=== PATIENT | female | born 1955 | race Caucasian/White ===

== ENCOUNTER 2023-10-09 13:44 | Emergency (ER) | payer OTHER ==
--- OUTSIDE RECORDS SUMMARY | 2023-10-09 13:46 | XMS REPORT | Continuity of Care Document ---
:[address] [facility] t Address [address] [place] [address] [place] [id number] Care Team Providers Name Role Phone EUGENIO CHRISTIANSON Attending Clinician Unavailable LONNIE WILEY Attending Clinician Unavailable SHUKRI COTTRELL Attending Clinician Unavailable ALEXX FARFAN Attending Clinician Unavailable LIVIA ROTHMAN Attending Clinician Unavailable LAB90 Attending Clinician Unavailable SYSTEM, PROVIDER NOT IN Attending Clinician Unavailable Payers Payer Name Policy Type Policy Number Effective Date Expiration Date S ource HUMANA [place] GOLD 7 [id number] 2023 00:00:00 PLUS 42 OA HUMANA MA 5 [id number] 2022 00:00:00 Problems Condition Condition Condition Status Onset Resolution Last Treating Co mments Source Name Details Category Date Date Treatment Clinician Date Chronic Chronic Disease Active Celia obstructiv obstructiv 04-24 Se ybold e e 00:00: - pulmonary pulmonary 00 Exte rna disease, disease, l unspecifie unspecifie d COPD d COPD type type Allergies, Adverse Reactions, Alerts Allergy Allergy Status Severity Reaction(s) Onset Inactive Treating Comm ents Source Name Type Date Date Clinician Latex Drug Active Rash Celia Allergy 03-19 Seybold 00:00: - 00 Externa l Social History Social Habit Start Date Stop Date Quantity Comments Source Gender identity Celia baires - External Sexual orientation Celia Ann - External History of tobacco Cigarette Smoker Celia Ann use - External Alcohol intake 2023-04-24 2023-04-24 Lifetime Celia caban 00:00:00 00:00:00 non-drinker - External (finding) Tobacco use and 2023-03-19 2023-03-19 Smokeless tobacco Ke lsey Seybold exposure 00:00:00 00:00:00 non-user - External History of Social 2023-03-19 2023-03-19 Celia Ann function 00:00:00 00:00:00 - External Tobacco Comment 2023-03-19 2023-03-19 Stopped 12 years Jose bajwa Seybold 00:00:00 00:00:00 ago - External Sex [birth year] At [birth year] Celia baires 00:00:00 00:00:00 - External Smoking Status Start Date Stop Date Source Ex-smoker 2023-03-19 00:00:00 2023-03-19 00:00:00 Celia tellez - External Medications Ordered Filled Start Stop Current Ordering Indication Dosage Frequency Signature Comments Components Source Medication Medication Date Date Medication? Clinician (SIG) Name Name Gabapentin 2022- No 900mg Take 3 Jose sey 300 MG oral 6-14 06-14 capsules Sey bold Capsule 09:29: 00:00 (900 mg - 09 :00 total) by Externa mouth 3 l times daily Alendronate 2022- No 70mg Take 1 Jose sey Sodium 70 6-14 06-14 tablet (70 Sey bold MG oral 09:27: 00:00 mg total) - Tablet 53 :00 by mouth Externa every 7 l days Omeprazole 2022- No 20mg Take 20 mg Celia 20 MG oral 6-14 06-14 by mouth Seyb old Tablet 09:02: 00:00 daily - Delayed 32 :00 Externa Release l Dispersible Exemestane Yes 25mg Take 1 Kelse y 25 MG oral 6-14 tablet (25 Sey bold Tablet 08:32: mg total) - 53 by mouth Externa daily l Venlafaxine Yes 37.5mg Take 1 Ke lsey HCl 37.5 MG 6-14 tablet Seybol d oral Tablet 08:32: (37.5 mg - 53 total) by Externa mouth l daily Albuterol Yes 2{puff} Q.25D Inhale 2 Celia HFA 108 (90 6-14 puffs into Se ybold Base) 08:32: the lungs - MCG/ACT IN 53 every 6 Tie Knitter Helper a AERS hours as l needed Aspirin 81 Yes 81mg Take 1 Kelse y MG oral 6-14 tablet (81 Seybol d Tablet 08:32: mg total) - Delayed 53 by mouth Externa Response daily l CALCIUM-VIT Yes 1{tbl} Take 1 Ke lsey LEDBETTER D OR 6-14 tablet by Seybo ld 08:32: mouth - 53 daily Externa l Tiotropium Yes [id number] Inhale K elsey [place] 6-14 into the Seybold Monohydrate 08:32: lungs - (SPIRIVA 53 Externa RESPIMAT l IN) Zoster Vac Yes [id number] One dose Celia Recomb 6-14 now. Seybold Adjuvanted 00:00: Second - (Shingrix) 00 dose given Ext sarah 50 MCG/0.5 two to six l mL months Intramuscul AFTER ar Recon first Suspension dose. Tdap Yes [id number] Administer Ke lsey (ADACEL) 6-14 one. Seybold 5-2-15.5 00:00: - LF-MCG/0.5 00 Externa mL l Intramuscul ar Suspension Alendronate Yes [id number] 70mg Take 1 Celia Sodium 70 6-14 tablet (70 Seyb old MG oral 00:00: mg total) - Tablet 00 by mouth Externa every 7 l days Gabapentin Yes [id number] 900mg Take 3 Celia 300 MG oral 6-14 capsules Seyb old Capsule 00:00: (900 mg - 00 total) by Externa mouth 3 l times daily Omeprazole Yes [id number] Ke lsey 20 MG oral 6-03 Seybold Delayed 00:00: - Release 00 Externa Capsule l Vital Signs Vital Name Observation Time Observation Value Comments Source Systolic blood 2023-04-24 13:26:00 100 mm[Hg] Celia Seybold - pressure External Diastolic blood 2023-04-24 13:26:00 68 mm[Hg] Josese y Seybold - pressure External Heart rate 2023-04-24 13:26:00 81 /min Celia S eybold - External Body temperature 2023-04-24 13:26:00 36.11 Nanci Casandra ey Seybold - External Respiratory rate 2023-04-24 13:26:00 16 /min Casandra Ann - External Body height 2023-04-24 13:26:00 160 cm Celia tellez - External Body weight 2023-04-24 13:26:00 92.352 kg Celia tellez - External BMI 2023-04-24 13:26:00 36.07 kg/m2 Celia tellez - External Oxygen saturation in 2023-04-24 13:26:00 98 /min Celia Ann - Arterial blood by External Pulse oximetry Procedures This patient has no known procedures. Encounters Start End Encounter Admission Attending Care Care Encounter Source Date/Time Date/Time Type Type Clinicians Facility Department ID 2023-08-09 2023-08-09 Outpatient CELIA CHRISTIANSON [id number] Celia 10:00:00 10:00:00 EUGENIO Seybol d 2023-07-30 2023-07-30 Outpatient CELIA WILEY [id number] Celia 00:00:00 00:00:00 LONNIE Seybol d 2023-07-30 2023-07-30 Outpatient CELIA WILEY [id number] Celia 00:00:00 00:00:00 LONNIE Seybol d 2023-07-25 2023-07-25 Outpatient CELIA CHRISTIANSON [id number] Celia 09:00:00 09:00:00 EUGENIO Seybol d 2023-07-17 2023-07-17 Outpatient CELIA COTTRELL [id number] Celia 14:15:00 14:15:00 SHUKRI Seybol d 2023-07-12 2023-07-12 Outpatient ALEXX FARFAN [id number] Celia 13:30:00 13:30:00 Seybol d 2023-07-12 2023-07-12 Outpatient CELIA GIBSON [id number] Celia 11:45:00 11:45:00 Seybol d 2023-05-27 2023-05-27 Outpatient CELIA WILEY [id number] Celia 00:00:00 00:00:00 LONNIE Seybol d 2023-05-24 2023-05-24 Outpatient STEPHANCELIA ROLAND [id number] Celia 00:00:00 00:00:00 LIVIA Seybol d 2023-04-24 2023-04-24 Outpatient LAB90 CELIA GIBSON [id number] Celia 10:00:00 10:00:00 Seybol d 2023-04-24 2023-04-24 Outpatient STEPHANCELIA ROLAND [id number] Celia 08:45:00 08:45:00 LIVIA Seybol raad 2023-04-24 2023-04-24 Outpatient STEPHANCELIA ROLAND [id number] Celia 00:00:00 00:00:00 LIVIA Seybol d 2023-04-12 2023-04-12 Outpatient STEPHANCELIA ROLAND [id number] Celia 08:15:00 08:15:00 LIVIA Seybol d 2023-03-26 2023-03-26 Outpatient PREZACELIA Gorman [id number] Celia 00:00:00 00:00:00 LONNIE Seybol raad 2023-03-22 2023-03-22 Outpatient CELIA CHRISTIANSON [id number] Celia 14:00:00 14:00:00 EUGENIO Seybol d 2023-02-25 2023-02-25 Outpatient SYSTEMCELIA [id number] Celia 00:00:00 00:00:00 PROVIDER Nir smith Results This patient has no known results.
[2023-10-09 15:09] LABS: Absolute Lymphocytes (CBC) 1.6 K/uL (0.7-4.9); Lymphocytes % 18.1 % (15.3-44.8); MCV 89.5 fL (80-100); Platelets 235 thou/uL (152-406); RBC Red Blood Cell Count 4.47 M/uL (3.86-4.86)
[2023-10-09 15:11] LABS: Protime INR 1.16
[2023-10-09 15:45] LABS: Magnesium 2.2 mg/dL (1.6-2.4); Potassium 3.6 mEq/L (3.5-5.1); Troponin High Sensitivity 6.8 pg/mL (<58.9)
--- NOTE | 2023-10-09 16:02 | RAD REPORT ---
EXAM DESCRIPTION: Stephanie Single View10/09/2023 3:39 pm CLINICAL HISTORY: Cough;Dyspnea COMPARISON: No comparisons TECHNIQUE: Portable AP view of the chest. FINDINGS: The lungs are clear. No pneumothorax or effusion. The cardiomediastinal contours are unre markable. IMPRESSION: No acute cardiopulmonary process.
--- NOTE | 2023-10-09 16:53 | EDPHYS ---
Physician Documentation [facility] Name: Milly Morse Age: 68 yrs Sex: Female : 1955 Arrival Date: 10/09/2023 Time: 13:44 Bed 14 Private MD: ED Physician Jean Pierre Dixon HPI: 10/09 15:21 This 68 yrs old Female presents to ER via Ambulatory with complaints of Chest Pain, ms3 Breathing Difficulty, Flu Symptoms. 15:21 68-year-old female with past medical history of COPD presents to the emergency ms3 department for fevers, chills, cough, shortness of breath that has been ongoing for 2 weeks. Patient states she has taken Motrin without relief. Patient denies any alleviating or inciting factors. Historical: - Allergies: 14:08 No Known Allergies; ll1 - PMHx: 14:08 copd; ll1 - Immunization history:: Adult Immunizations up to date. - Social history:: Smoking status: Patient/guardian denies using tobacco, the patient reports quitting approximately 12 years ago. ROS: 15:21 Neck: Negative for injury, pain, and swelling, Cardiovascular: Negative for chest pain, ms3 and palpitations. 15:21 Skin: Negative for injury, rash, and discoloration, 15:21 Constitutional: Positive for chills, fever, 15:21 Respiratory: Positive for cough, 15:21 All other systems are negative, Exam: 15:21 Constitutional: This is a well developed, well nourished patient who is awake, alert, ms3 and in no acute distress. Head/Face: Normocephalic, atraumatic. Neck: Trachea midline, no cervical lymphadenopathy. Supple, full range of motion without nuchal rigidity, or vertebral point tenderness. No Meningismus. Chest/axilla: Normal chest wall appearance and motion. Nontender with no deformity. Cardiovascular: Regular rate and rhythm with a normal S1 and S2. No gallops, murmurs, or rubs. Normal PMI, no JVD. No pulse deficits. Respiratory: Lungs have equal breath sounds bilaterally, clear to auscultation and percussion. No rales, rhonchi or wheezes noted. No increased work of breathing, no retractions or nasal flaring. Abdomen/GI: Soft, non-tender, with normal bowel sounds. No distension or tympany. No guarding or rebound. No evidence of tenderness throughout. Skin: Warm, dry with normal turgor. Normal color with no rashes, no lesions, and no evidence of cellulitis. MS/ Extremity: Pulses equal, no cyanosis. Neurovascular intact. Full, normal range of motion. 16:56 ECG was reviewed by the Attending Physician. ms3 Vital Signs: 14:08 BP 133 / 78; Pulse 100; Resp 18; Temp 98.5; Pulse Ox 94% on R/A; Weight 81.65 kg; ll1 Height 5 ft. 3 in. ; Pain 6/10; 17:01 BP 121 / 75; Pulse 92; Resp 16; Pulse Ox 98% ; ko1 14:08 Body Mass Index 31.89 (81.65 kg, 160.02 cm) ll1 14:08 Pain Scale: Adult ll1 MDM: 14:21 Patient medically screened. ms3 15:21 Differential diagnosis: abnormal EKG, acute myocardial infarction, coronary artery ms3 disease pneumonia. 16:54 Data reviewed: vital signs, nurses notes, lab test result(s), EKG, radiologic studies, ms3 and as a result, I will discharge patient. Counseling: I had a detailed discussion with the patient and/or guardian regarding the historical points, exam findings, and any diagnostic results supporting the discharge/admit diagnosis, lab results, radiology results, the need for outpatient follow up, to return to the emergency department if symptoms worsen or persist or if there are any questions or concerns that arise at home. Special discussion: Based on the patient's history, exam, and Dx evaluation, there is no indication for emergent intervention or inpatient Tx. It is understood by the patient/guardian that if the Sx's persist or worsen they need to return immediately for re-evaluation. ED course: Discussed labs, EKG, chest x-ray findings with patient. Patient to follow-up with primary care physician in 1 to 2 days. Patient understands agrees with plan. Questions were answered. Return precautions discussed include worsening symptoms, or any other concerns. On reevaluation patient is alert and oriented x4, no apparent distress, nontoxic-appearing, speaking full sentences. 10/09 14:25 Order name: Basic Metabolic Panel; Complete Time: 15:54 ms3 10/09 14:25 Order name: CBC with Diff; Complete Time: 15:54 ms3 10/09 14:25 Order name: Magnesium; Complete Time: 15:54 ms3 10/09 14:25 Order name: NT PRO-BNP; Complete Time: 15:54 ms3 10/09 14:25 Order name: PT-INR; Complete Time: 15:54 ms3 10/09 14:25 Order name: Troponin HS; Complete Time: 15:54 ms3 10/09 14:25 Order name: XRAY Chest (1 view); Complete Time: 16:25 ms3 10/09 14:25 Order name: EKG; Complete Time: 14:25 ms3 10/09 14:25 Order name: Cardiac monitoring; Complete Time: 14:48 ms3 10/09 14:25 Order name: EKG - Nurse/Tech; Complete Time: 15:01 ms3 10/09 14:25 Order name: IV Saline Lock; Complete Time: 14:58 ms3 10/09 14:25 Order name: Labs collected and sent; Complete Time: 14:58 ms3 10/09 14:25 Order name: O2 Per Protocol; Complete Time: 14:48 ms3 10/09 14:25 Order name: O2 Sat Monitoring; Complete Time: 14:49 ms3 EC:56 Rate is 88 beats/min. Rhythm is regular. QRS [place] is Normal. [place] interval is normal. QRS ms3 interval is normal. QT interval is normal. Clinical impression: Normal ECG. Interpreted by me. Reviewed by me. Administered Medications: No medications were administered Disposition Summary: 10/09/23 16:53 Discharge Ordered Notes: Location: Home ms3 Condition: Stable ms3 Diagnosis - Acute upper respiratory infection, unspecified ms3 Followup: ms3 - With: Sandeep Bennett DO - When: 2 - 3 days - Reason: Recheck today's complaints Discharge Instructions: - Discharge Summary Sheet ms3 - Upper Respiratory Infection, Adult ms3 Forms: - Medication Reconciliation Form ms3 - Thank You Letter ms3 - Antibiotic Education ms3 - Prescription Opioid Use ms3 - Patient Portal Instructions ms3 - Leadership Thank You Letter ms3 Prescriptions: - Ventolin HFA 90 mcg/actuation Inhalation HFA Aerosol Inhaler - inhale 2 inhalation INHALATION route every 4 to 6 hours as needed for ms3 bronchospasm; administer via ventilator; 1 unit; Refills: 0, Product Selection Permitted Signatures: Dispatcher [employer]st Melyssa López, RN RN ll1 Jean Pierre Dixon, DO ms3
--- NOTE | 2023-10-09 16:53 | ER ---
Nurse's Notes [facility] Name: Milly Morse Age: 68 yrs Sex: Female : 1955 Arrival Date: 10/09/2023 Time: 13:44 Bed 14 Private MD: Diagnosis: Acute upper respiratory infection, unspecified Presentation: 10/09 14:08 Chief complaint: Patient states: Cough, congestion, fatigue, fever 100 for 2 weeks. ll1 Coronavirus screen: Vaccine status: Patient reports receiving the 2nd dose of the covid vaccine. Client denies travel out of the [place] in the last 14 days. congestion, cough unrelated to allergies, fatigue, fever, headache. Ebola Screen: Patient denies travel to an Ebola-affected area in the 21 days before illness onset. Initial Sepsis Screen: Does the patient meet any 2 criteria? No. Patient's initial sepsis screen is negative. Does the patient have a suspected source of infection? Yes: Productive cough/pneumonia. Risk Assessment: Do you want to hurt yourself or someone else? Patient reports no desire to harm self or others. Onset of symptoms was September 24, 2023. 14:08 Method Of Arrival: Ambulatory ll1 14:08 Acuity: LEVY 3 ll1 Historical: - Allergies: 14:08 No Known Allergies; ll1 - PMHx: 14:08 copd; ll1 - Immunization history:: Adult Immunizations up to date. - Social history:: Smoking status: Patient/guardian denies using tobacco, the patient reports quitting approximately 12 years ago. Screenin:00 [facility] Fall Risk Assessment (Adult) History of falling in the last 3 months, ko1 including since admission No falls in past 3 months (0 pts) Confusion or Disorientation No (0 pts) Intoxicated or Sedated No (0 pts) Impaired Gait No (0 pts) Mobility Assist Device Used No (0 pt) Altered Elimination No (0 pt) Score/Fall Risk Level 0 - 2 = Low Risk Oriented to surroundings, Maintained a safe environment, Educated pt \T\ family on fall prevention, incl call for assistance when getting out of bed, Assessed \T\ reinforced patient's understanding of fall precautions, Provided non-skid footwear, Hourly rounding (assess needs \T\ fall precautionary measures) done, Used ambulatory aids as needed (educated on \T\ assisted with). Abuse screen: Denies threats or abuse. Denies injuries from another. Nutritional screening: No deficits noted. Tuberculosis screening: No symptoms or risk factors identified. Assessment: 15:00 Pain: Pain does not radiate. Pain began suddenly. Neuro: No deficits noted. ko1 Cardiovascular: Reports chest pain. Respiratory: Reports shortness of breath. GI: No deficits noted. : No deficits noted. EENT: No deficits noted. Derm: No deficits noted. Musculoskeletal: No deficits noted. Vital Signs: 14:08 BP 133 / 78; Pulse 100; Resp 18; Temp 98.5; Pulse Ox 94% on R/A; Weight 81.65 kg; ll1 Height 5 ft. 3 in. ; Pain 6/10; 17:01 BP 121 / 75; Pulse 92; Resp 16; Pulse Ox 98% ; ko1 14:08 Body Mass Index 31.89 (81.65 kg, 160.02 cm) ll1 14:08 Pain Scale: Adult ll1 ED Course: 13:47 Patient arrived in ED. mg5 13:48 Jean Pierre Dixon DO is Attending Physician. ms3 14:07 Arm band placed on Patient placed in an exam room, on a stretcher. ll1 14:09 Triage completed. ll1 14:48 Ingris Martin, RN is Primary Nurse. ko1 14:55 Inserted saline lock: 22 gauge in right antecubital area, using aseptic technique. ko1 Blood collected. Patient maintains SpO2 saturation greater than 95% on room air. 14:58 Basic Metabolic Panel Sent. ko1 14:58 CBC with Diff Sent. ko1 14:58 Magnesium Sent. ko1 14:58 NT PRO-BNP Sent. ko1 14:58 PT-INR Sent. ko1 14:58 Troponin HS Sent. ko1 15:00 Patient has correct armband on for positive identification. Bed in low position. Call ko1 light in reach. Side rails up X2. Provided Education on: na. Pulse ox on. NIBP on. Door closed. Noise minimized. 15:00 No provider procedures requiring assistance completed. ko1 15:40 XRAY Chest (1 view) In Process Unspecified. EDMS 16:52 Sandeep Bennett DO is Referral Physician. ms3 17:15 IV discontinued, intact, bleeding controlled, No redness/swelling at site. Pressure ko1 dressing applied. Administered Medications: No medications were administered Medication: 17:01 VIS not applicable for this client. ko1 Outcome: 16:53 Discharge ordered by . ms3 17:15 Discharged to home ambulatory, with family, ko1 17:15 Condition: stable 17:15 Discharge instructions given to patient, family, Instructed on discharge instructions, follow up and referral plans. medication usage, Demonstrated understanding of instructions, follow-up care, medications, Prescriptions given X 1, 17:17 Patient left the ED. ko1 Signatures: Dispatcher [employer] EDMS Melyssa Borrego, RN RN ll1 Jean Pierre Dixon DO DO ms3 Ingris Martin, RN RN ko1 Shagufta Leyva mg5
[2023-10-09 17:30] VITALS: TEMP 98.5
[2023-10-09 17:40] VITALS: BP 121/75; O2SAT 98
--- NOTE | 2023-10-10 15:14 | EKG ---
Test Date: 2023-10-09 Test Time: 15:01:47 [place] Operator: ROMANA MEASUREMENT RESULTS: Intervals: Rate: 88 CA: 140 QRSD: 70 QT: 388 QTc: 469 [place]: P: 75 CA: 140 QRS: 70 T: 93 INTERPRETIVE STATEMENTS: Normal sinus rhythm Low voltage QRS Borderline ECG No previous ECG available for comparison Electronically Signed On 10-10-23 15:11:16 ADULT CROSSING GUARD by Kenneth Ramirez
== END 2023-10-09 17:17 | disposition home or self-care (01) ==
LOC: ER 13:44
DX: J06.9 Acute upper respiratory infection, unspecified (principal); J44.9 Chronic obstructive pulmonary disease, unspecified
CPT/HCPCS: 36415; 71045; 80048; 83735; 83880; 84484; 85025; 85610; 93005; 99284